=== PATIENT | female | born 1975 | race Two or more races ===

== ENCOUNTER 2019-01-18 13:26 | Emergency (ER) | payer BC ==
[~2019-01-18] VITALS: Ht 157.5 cm; Wt 105.2 kg
[2019-01-18] MEDS ORDERED: ZOLOFT50 MG PO (13:37)
[2019-01-18] MEDS ORDERED: XANAX0.5 MG PO (13:37)
[2019-01-18] MEDS ORDERED: SODIUM CHLORIDE 0.9% 1000ML 1,000 ML IV STA (13:58)
[2019-01-18 14:11] LABS: BILIRUBIN,URINE 1+ (NEGATIVE); CLARITY,URINE HAZY (CLEAR); COLOR,URINE YELLOW (YELLOW); KETONES,URINE 1+ (NEGATIVE); LEUKOCYTE ESTERASE ,URINE NEGATIVE (NEGATIVE); NITRITE,URINE NEGATIVE (NEGATIVE); PROTEIN,URINE DIPSTICK TRACE (NEGATIVE); URINE UROBILINOGEN 0.2 mg/dL (0.2 - 1)
[2019-01-18] MEDS ORDERED: DIATRIZOATE MEGL/DIATRIZOA SOD 30 ML BTL PO ONE (14:14)
[2019-01-18 14:16] LABS: BACTERIA,URINE FEW /HPF; EPITHELIAL CELLS,URINE FEW /LPF; RBC,URINE 21-50 /HPF (0-5); WBC,URINE (MAN) 0-5 /HPF (0-5)
--- NOTE | 2019-01-18 14:17 | NUR ---
xray at bedside.
--- NOTE | 2019-01-18 14:20 | NUR ---
xray leaves bedside.
[2019-01-18] MEDS ORDERED: ONDANSETRON HCL INJ 2MG/ML 2ML 2 MG/ML VIAL IV ONE ×3 (14:30→19:30)
[2019-01-18] MEDS ORDERED: PANTOPRAZOLE 40 MG 10ML VIAL IV ONE (14:30)
[2019-01-18] MEDS ORDERED: MORPHINE SULFATE INJ 4 MG/ML INJ 1ML IV ONE ×2 (14:30→18:00)
--- NOTE | 2019-01-18 14:55 | Diagnostic Imaging Report ---
EXAMINATION: CHEST SINGLE (PORTABLE) COMPARISON: None INDICATION: 3 days of diarrhea ^ABD PAIN ^[id number] ^1433 DISCUSSION: Frontal view of the chest obtained at 1437 hours. HEART AND MEDIASTINUM: The cardiomediastinal silhouette is unremarkable. LINES: None. LUNGS: The lungs are well inflated and clear. No pneumonia or pulmonary edema. PLEURA: No pleural effusion or pneumothorax. BONES AND SOFT TISSUES: No focal osseous lesion. The soft tissues are normal. IMPRESSION: No acute cardiopulmonary disease. Signed by: Dr. Florian Johns MD on 01/18/2019 2:52 PM
[2019-01-18 16:19] LABS: BASOPHILS % 0.3 % (0.0-1.0); EOSINOPHILS % 0.6 % (0.0-6.0); HEMATOCRIT 45.9 % (34.2-44.1); HEMOGLOBIN 15.3 g/dL (12.0-16.0); LYMPHOCYTES # (AUTO) 1.6 (1.0-3.2); LYMPHOCYTES % 22.4 % (18.0-39.1); MEAN CORPUSCULAR HEMOGLOBIN 31.7 pg (28-32); MEAN CORPUSCULAR HGB CONC 33.3 g/dL (31-35); MONOCYTES # (AUTO) 1.1 (0.2-0.8); NEUTROPHILS # (AUTO) 4.3 (2.1-6.9); NEUTROPHILS % 60.3 % (38.7-80.0); PLATELET COUNT 193 x10e3/uL (140-360); RED BLOOD COUNT 4.83 x10e6/uL (3.6-5.1); RED CELL DISTRIBUTION WIDTH 11.9 % (11.7-14.4)
[2019-01-18 16:23] LABS: INR 0.92; PROTHROMBIN TIME 12.8 seconds (11.9-14.5)
[2019-01-18 16:24] LABS: PARTIAL THROMBOPLASTIN TIME 33.1 seconds (23.8-35.5)
[2019-01-18 16:33] LABS: ALANINE AMINOTRANSFERASE 32 IU/L (0-55); ALBUMIN 3.6 g/dL (3.5-5.0); ALBUMIN/GLOBULIN RATIO 0.9 (0.8-2.0); ALKALINE PHOSPHATASE 84 IU/L (40-150); AMYLASE 47 U/L (25-125); BLOOD UREA NITROGEN 11 mg/dL (7-26); BUN/CREATININE RATIO 15 (6-25); CALCIUM 8.3 mg/dL (8.4-10.2); CARBON DIOXIDE 18 mmol/L (22-29); CHLORIDE 109 mmol/L (98-107); CREATINE KINASE 49 IU/L (29-168); CREATININE, SERUM 0.71 mg/dL (0.57-1.11); EST GLOMERULAR FILTRATION RATE > 60 ML/MIN (60-); GLUCOSE 81 mg/dL (74-118); LIPASE 26 U/L (8-78); MAGNESIUM 1.7 MG/DL (1.3-2.1); SODIUM 136 mmol/L (136-145)
[2019-01-18 16:54] LABS: OCCULT BLOOD STOOL POSITIVE (NEGATIVE)
[2019-01-18] MEDS ORDERED: SODIUM CHLORIDE 0.9% 1000ML 1,000 ML IV ONE (17:15)
--- NOTE | 2019-01-18 17:30 | Diagnostic Imaging Report ---
CT Abdomen And Pelvis with Intravenous Contrast INDICATION: ^DIFFUSE ABD PAIN, N/V/D TECHNIQUE: Thin collimation axial images obtained from the diaphragm to the level of the pubic symphysis following the uneventful administration of 100 cc of low osmolar, nonionic intravenous contrast. Oral contrast was administered. Dose reduction techniques used: Automated exposure control, adjustment of the mAs and/or kVp according to patient size, standardized low-dose protocol, and/or iterative reconstruction technique. RADIATION DOSE: Total DLP: 868.6 mGy*cm Estimated effective dose: (DLP x 0.015 x size factor) mSv CTDIvol has been reviewed. It is below the limits set by the Radiation Protocol Committee (RPC). COMPARISON: None. ABDOMEN FINDINGS: Lung Bases: Clear. The visualized portions of the mediastinum are normal.. Liver: Normal attenuation. No evidence for mass. Gallbladder: Present and appears normal. No biliary ductal dilatation. Pancreas: Normal attenuation without mass or ductal dilatation. Spleen: Normal in size. No evidence of mass.. Adrenal Glands: No evidence for mass. Kidneys: Right: Normal enhancement. Several cysts in the lower pole, measuring up to 2.9 cm. This largest cyst may be septated. Punctate calculus in the lower pole No hydronephrosis. Left: Normal enhancement. Multiple cysts, measuring up to 7.3 cm. This largest cyst appears to be septated (series 2, image 38). There is a 5 mm calculus in the upper pole.. The central collecting system is mildly prominent but there is no perinephric inflammation or calyceal dilatation. Lymph Nodes: No enlarged abdominal or retroperitoneal lymph nodes. Mesenteric lymph nodes are mildly prominent, measuring up to 17 mm. No haziness of the small bowel mesentery. Aorta: Normal in diameter PELVIS FINDINGS: Bowel: Stomach: Normal. Small Bowel: Normal in caliber with normal wall thickness. There is enteric contrast in the distal small bowel. Large Bowel: Normal in caliber with normal wall thickness. The cecum is located midline in the pelvis. Enteric contrast present throughout. Appendix: Normal appendix. Bladder: Mildly underdistended but otherwise normal. Ureters: No ureteral dilatation or calculus. No free fluid or fluid collection. The uterus is absent. No adnexal mass. Bones: Mild degenerative changes of the spine. Soft tissues: Unremarkable. IMPRESSION: 1. No evidence for bowel obstruction or inflammation. Normal appendix. 2. Bilateral intrarenal calculi. No obstructive uropathy. 3. Bilateral renal cysts, the largest of which may be septated. 4. Prominent and non-specific mesenteric lymph nodes. Signed by: Dr. Florian Johns MD on 01/18/2019 5:27 PM
[2019-01-18] MEDS ORDERED: IOPAMIDOL 370 MG/ML 200 ML INFUS..BTL INJ ONE (18:24)
[2019-01-18] MEDS ORDERED: SODIUM CHLORIDE 0.9% 50ML 50 ML ONE (18:24)
[2019-01-18 19:59] VITALS: BP 97/56
[2019-01-18] MEDS ORDERED: SODIUM CHLORIDE 0.9% 500ML 500 ML IV ONE (20:15)
[2019-01-18] MEDS ORDERED: PROMETHAZINE 12.5MG/ NACL 0.9% 12.5 MG/50 ML BAG IV ONE (20:15)
[2019-01-19 10:28] LABS: C DIFFICILE TOXIN A&B AMP PROB **POSITIVE** (NEGATIVE)
--- NOTE | 2019-01-20 11:24 | NUR ---
PT NOTIFIED OF POSITIVE C-DIFF RESULTS. VANCOMYCIN 125 MG PO Q6 X 10 DAYS CALLED IN TO [facility] ON BW8. PT INSTRUCTED OF IMPORTANCE OF F/U WITH GI AND VERBALIZES UNDERSTANDING.
== END 2019-01-18 21:20 | disposition home or self-care (01) ==
LOC: ER 13:26
DX: R10.84 Generalized abdominal pain (principal); R11.2 Nausea with vomiting, unspecified; R19.7 Diarrhea, unspecified
CPT/HCPCS: 36415; 71045; 74177; 80053; 81001; 82150; 82270; 82550; 82553; 83690; 83735; 84484; 85025; 85610; 85730; 87086; 87493; 93005; 99284; C9113; J2270; J2405; J2550; J7030; J7040; Q9967

== ENCOUNTER 2019-01-22 23:29 | Emergency (ER) | payer BC ==
[~2019-01-22] VITALS: Ht 157.5 cm; Wt 105.2 kg
[~2019-01-22 23:29] MED LIST: XANAX0.5 MG PO; ZOLOFT50 MG PO
--- OUTSIDE RECORDS SUMMARY | 2019-01-22 23:32 | XMS REPORT ---
Author Author [facility] Address Unknown Phone Unavailable Care Team Providers Care Manager Resort Name Role Phone Brenda PARKER Unavailable Unavailable Problems This patient has no known problems. Allergies, Adverse Reactions, Alerts This patient has no known allergies or adverse reactions. Medications This patient has no known medications. Results Test Description Test Time Test Comments Text Results Atomic Results Result Comments CT ABDOMEN/PELVIS W 2019-01-18 17:12:00 [place] [address] Patient Name: QUENTIN WAHL MR #: [id number] : 1975 Age/Sex: 44/F Req #: [id number] Adm Physician: Ordered by: GERMAN PARKER MD Report #: [id number] Location: ER Room/Bed: Procedure: [id number] CT/CT ABDOMEN/PELVIS W Exam Date: Exam Time: REPORT STATUS: Signed CT Abdomen And Pelvis with Intravenous Contrast INDICATION: DIFFUSE ABD PAIN, N/V/D TECHNIQUE: Thin collimation axial images obtained from the diaphragm to the level of the pubic symphysis following the uneventful administration of 100 cc of low osmolar, nonionic intravenous contrast. Oral contrast was administered. Dose reduction techniques used: Automated exposure control, adjustment of the mAs and/or kVp according to patient size, standardized low-dose protocol, and/or iterative reconstruction technique. RADIATION DOSE: Total DLP: 868.6 mGy*cm Estimated effective dose: (DLP x 0.015 x size factor) mSv CTDIvol has been reviewed. It is below the limits set by the Radiation Protocol Committee (RPC). COMPARISON: None. ABDOMEN FINDINGS: Lung Bases: Clear. The visualized portions of the mediastinum are normal.. Liver: Normal attenuation. No evidence for mass. Gallbladder: Present and appears normal. No biliary ductal dilatation. Pancreas: Normal attenuation without mass or ductal dilatation. Spleen: Normal in size. No evidence of mass.. Adrenal Glands: No evidence for mass. Kidneys: Right: Normal enhancement. Several cysts in the lower pole, measuring up to 2.9 cm. This largest cyst may be septated. Punctate calculus in the lower pole No hydronephrosis. Left: Normal enhancement. Multiple cysts, measuring up to 7.3 cm. This largest cyst appears to be septated (series 2, image 38). There is a 5 mm calculus in the upper pole.. The central collecting system is mildly prominent but there is no perinephric inflammation or calyceal dilatation. Lymph Nodes: No enlarged abdominal or retroperitoneal lymph nodes. Mesenteric lymph nodes are mildly prominent, measuring up to 17 mm. No haziness of the small bowel mesentery. Aorta: Normal in diameter PELVIS FINDINGS: Bowel: Stomach: Normal. Small Bowel: Normal in caliber with normal wall thickness. There is enteric contrast in the distal small bowel. Large Bowel: Normal in caliber with normal wall thickness. The cecum is located midline in the pelvis. Enteric contrast present throughout. Appendix: Normal appendix. Bladder: Mildly underdistended but otherwise normal. Ureters: No ureteral dilatation or calculus. No free fluid or fluid collection. The uterus is absent. No adnexal mass. Bones: Mild degenerative changes of the spine. Soft tissues: Unremarkable. IMPRESSION: 1. No evidence for bowel obstruction or inflammation. Normal appendix. 2. Bilateral intrarenal calculi. No obstructive uropathy. 3. Bilateral renal cysts, the largest of which may be septated. 4. Prominent and non-specific mesenteric lymph nodes. Signed by: Dr. Gwen Johns MD on 01/18/2019 5:27 PM Dictated By: GWEN JOHNS MD 26 Transcribed By: JONES on 01/18/191726 COPY TO: GERMAN PARKER MD CHEST SINGLE (PORTABLE) 2019-01-18 14:51:00 [place] [address] Patient Name: QUENTIN WAHL MR #: [id number] : 1975 Age/Sex: 44/F Req #: [id number] Adm Physician: Ordered by: GERMAN PARKER MD Report #: [id number] Location: ER Room/Bed: Procedure: [id number] DX/CHEST SINGLE (PORTABLE) Exam Date: 01/18/19 Exam Time: 1433 REPORT STATUS: Signed EXAMINATION: CHEST SINGLE (PORTABLE) COMPARIS ON: None INDICATION: 3 days of diarrhea ABD PAIN [id number] 1433 DISCUSSION: Frontal view of the chest obtained at 1437 hours. HEART AND MEDIASTINUM: The cardiomediastinal silhouette is unremarkable. LINES: None. LUNGS: The lungs are well inflated and clear. No pneumonia or pulmonary edema. PLEURA: No pleural effusion or pneumothorax. BONES AND SOFT TISSUES: No focal osseous lesion. The soft tissues are normal. IMPRESSION: No acute cardiopulmonary disease. Signed by: Dr. Gwen Johns MD on 01/18/2019 2:52 PM Dictated By: GWEN JOHNS MD [id number] Transcribed By: JONES on 01/18/19 1422 COPY TO: GERMAN PARKER MD
[2019-01-23 02:55] LABS: CLARITY,URINE CLOUDY (CLEAR); COLOR,URINE YELLOW (YELLOW); LEUKOCYTE ESTERASE ,URINE TRACE (NEGATIVE)
[2019-01-23 02:56] LABS: BILIRUBIN,URINE NEGATIVE (NEGATIVE); KETONES,URINE TRACE (NEGATIVE); NITRITE,URINE NEGATIVE (NEGATIVE); PROTEIN,URINE DIPSTICK 1+ (NEGATIVE); URINE UROBILINOGEN 0.2 mg/dL (0.2 - 1)
[2019-01-23 03:07] LABS: BACTERIA,URINE MANY /HPF; CALCIUM OXALATE CRYSTALS,UR MANY (FEW); EPITHELIAL CELLS,URINE FEW /LPF; MUCUS,URINE MODERATE (RARE); RBC,URINE >50 /HPF (0-5)
[2019-01-23] MEDS ORDERED: KETOROLAC TROMETHAMINE 60 MG/2 ML VIAL IM ONE (03:45)
[2019-01-23] MEDS ORDERED: PHENAZOPYRIDINE HCL 100 MG TAB PO ONE (03:45)
[2019-01-23] MEDS ORDERED: TAMSULOSIN HCL 0.4 MG CAP PO SCH (03:45)
[2019-01-23] MEDS ORDERED: CIPROFLOXACIN 500 MG TAB PO SCH (03:45)
[2019-01-23] MEDS ORDERED: FLOMAX0.4 MG PO (04:32)
[2019-01-23] MEDS ORDERED: KEFLEX500 MG PO (04:34)
[2019-01-23] MEDS ORDERED: ULTRAM50 MG PO (04:34)
[2019-01-23] MEDS ORDERED: TYLENOL WITH C1 EACH PO (04:34)
== END 2019-01-23 05:27 | disposition home or self-care (01) ==
LOC: ER 23:29
DX: M54.5 Low back pain (principal); N20.0 Calculus of kidney; F41.9 Anxiety disorder, unspecified; F32.9 Major depressive disorder, single episode, unspecified
CPT/HCPCS: 81001; 99283; J1885

== ENCOUNTER → 2019-02-10 | Outpatient (CLI) | payer BC ==
[~2019-02-10] MED LIST changes: +FLOMAX0.4 MG PO; +KEFLEX500 MG PO; +TYLENOL WITH C1 EACH PO; +ULTRAM50 MG PO
== END ==
LOC: MAMMO 09:26
PROVIDERS: ATTEND Obstetrics & Gynecology
DX: Z12.31 Encounter for screening mammogram for malignant neoplasm of breast (principal)
CPT/HCPCS: 77067

== ENCOUNTER 2019-02-26 01:56 | Inpatient (IN) | payer BC ==
[~2019-02-26] VITALS: Ht 157.5 cm; Wt 105.2 kg
[2019-02-26] MEDS ORDERED: ONDANSETRON HCL 4 MG ORAL DISINTEGRATING TAB PO ONE (02:30)
[2019-02-26] MEDS ORDERED: KETOROLAC TROMETHAMINE 60 MG/2 ML VIAL IM ONE (02:30)
[2019-02-26 02:52] LABS: BILIRUBIN,URINE NEGATIVE (NEGATIVE); CLARITY,URINE CLOUDY (CLEAR); COLOR,URINE YELLOW (YELLOW); KETONES,URINE NEGATIVE (NEGATIVE); LEUKOCYTE ESTERASE ,URINE 1+ (NEGATIVE); NITRITE,URINE NEGATIVE (NEGATIVE); PROTEIN,URINE DIPSTICK 1+ (NEGATIVE); URINE UROBILINOGEN 0.2 mg/dL (0.2 - 1)
[2019-02-26 02:53] LABS: BACTERIA,URINE MANY /HPF; CALCIUM OXALATE CRYSTALS,UR FEW (FEW); EPITHELIAL CELLS,URINE FEW /LPF; MUCUS,URINE MODERATE (RARE); RBC,URINE >50 /HPF (0-5)
[2019-02-26 03:06] LABS: PREGNANCY TEST, URINE NEGATIVE (NEGATIVE)
--- NOTE | 2019-02-26 03:33 | Diagnostic Imaging Report ---
EXAM: CT Abdomen and Pelvis WITHOUT contrast INDICATION: Left flank pain. Vomiting. Kidney stone. COMPARISON: 01/18/2019. TECHNIQUE: Abdomen and pelvis were scanned utilizing a multidetector helical scanner from the lung base to the pubic symphysis without administration of IV contrast. Absence of intravenous contrast decreases sensitivity for detection of focal lesions and vascular pathology. Coronal and sagittal reformations were obtained. Routine protocol was performed. IV CONTRAST: None. ORAL CONTRAST: Water RADIATION DOSE: Total DLP: 859.24 mGy*cm Estimated effective dose: (DLP x 0.015 x size factor) mSv COMPLICATIONS: None FINDINGS: LINES and TUBES: None. LOWER THORAX: Unremarkable HEPATOBILIARY: No focal hepatic lesions. No biliary ductal dilation. GALLBLADDER: No radio-opaque stones or sludge. No wall thickening. SPLEEN: No splenomegaly. PANCREAS: No focal masses or ductal dilatation. ADRENALS: No adrenal nodules KIDNEYS/URETERS: Edematous left kidney with moderate hydroureteronephrosis, secondary to the presence of a 0.5 cm obstructing calculus in the proximal left ureter, which has migrated from the interpolar region of the left kidney. 10 cm cyst in the lower pole of the left kidney. Cysts in the lower pole of the right kidney, the largest measuring approximately 2.9 cm. Punctate nonobstructing calculus in the lower pole of the right kidney on image 76 series 3. GI TRACT: No abnormal distention, wall thickening, or evidence of bowel obstruction. Appendix is normal. PELVIC ORGANS/BLADDER: Unremarkable. LYMPH NODES: No lymphadenopathy. VESSELS: Unremarkable. PERITONEUM / RETROPERITONEUM: No free air or fluid. BONES: Unremarkable. SOFT TISSUES: Unremarkable. IMPRESSION: 1. 0.5 mm obstructing calculus in the proximal left ureter resulting in moderate left hydroureteronephrosis and marked left renal edema Signed by: Dr. Tio De La Cruz M.D. on 02/26/2019 3:30 AM
[2019-02-26] MEDS: SODIUM CHLORIDE 0.9% 1000ML 1,000 ML IV SCH ×2 (04:07→13:00)
[2019-02-26] MEDS: CEFTRIAXONE SOD 1 GM/NS 50 ML 50 ML IV SCH ×2 (06:23→09:12)
[2019-02-26] MEDS ORDERED: PROMETHAZINE HC25 M1 PO (06:37)
[2019-02-26] MEDS ORDERED: KETOROLAC TROMETHAMINE 30 MG/ML VIAL IM PRN (06:45)
[2019-02-26 06:57] LABS: BASOPHILS % 0.3 % (0.0-1.0); EOSINOPHILS # (AUTO) 0.1 (0.0-0.4); EOSINOPHILS % 0.7 % (0.0-6.0); HEMATOCRIT 40.2 % (34.2-44.1); HEMOGLOBIN 13.3 g/dL (12.0-16.0); LYMPHOCYTES # (AUTO) 1.9 (1.0-3.2); LYMPHOCYTES % 13.9 % (18.0-39.1); MEAN CORPUSCULAR HEMOGLOBIN 31.7 pg (28-32); MEAN CORPUSCULAR HGB CONC 33.1 g/dL (31-35); MEAN CORPUSCULAR VOLUME 95.9 fL (81-99); MONOCYTES # (AUTO) 2.1 (0.2-0.8); MONOCYTES % 15.1 % (4.4-11.3); NEUTROPHILS # (AUTO) 9.5 (2.1-6.9); NEUTROPHILS % 69.4 % (38.7-80.0); PLATELET COUNT 245 x10e3/uL (140-360); RED BLOOD COUNT 4.19 x10e6/uL (3.6-5.1); RED CELL DISTRIBUTION WIDTH 11.8 % (11.7-14.4)
[2019-02-26 07:08] LABS: ALANINE AMINOTRANSFERASE 25 IU/L (0-55); ALBUMIN 3.5 g/dL (3.5-5.0); ALBUMIN/GLOBULIN RATIO 0.9 (0.8-2.0); ALKALINE PHOSPHATASE 79 IU/L (40-150); ANION GAP 13.3 mmol/L (8-16); BLOOD UREA NITROGEN 15 mg/dL (7-26); BUN/CREATININE RATIO 18 (6-25); CALCIUM 9.5 mg/dL (8.4-10.2); CARBON DIOXIDE 25 mmol/L (22-29); CHLORIDE 105 mmol/L (98-107); CREATININE, SERUM 0.85 mg/dL (0.57-1.11); EST GLOMERULAR FILTRATION RATE > 60 ML/MIN (60-); GLUCOSE 95 mg/dL (74-118); POTASSIUM 3.3 mmol/L (3.5-5.1); SODIUM 140 mmol/L (136-145)
[2019-02-26 07:48] LABS: LYMPHOCYTES % (MANUAL) 20 % (19-48); MONOCYTES % (MANUAL) 9 % (3.4-9.0); NEUTROPHILS % (MANUAL) 71 % (40-74); PLATELET ESTIMATE ADEQUATE; PLATELET MORPHOLOGY COMMENT NORMAL; RBC MORPHOLOGY COMMENT NORMAL
--- NOTE | 2019-02-26 09:11 | NUR ---
DR. Jesus BARON IN TO SEE PATIENT. PATIENT NPO. CONSENT SIGNED AND PLACED INTO CHART ORDERED.
[2019-02-26] MEDS: SERTRALINE HCL 50 MG TAB PO SCH (09:12)
[2019-02-26] MEDS ORDERED: PROMETHAZINE HCL (IM) 25 MG/ML VIAL IM PRN (09:45)
[2019-02-26] MEDS: KETOROLAC TROMETHAMINE 30 MG/ML VIAL IV PRN ×2 (11:04→21:18)
[2019-02-26 12:00] VITALS: BP 126/79
[2019-02-26 12:20] VITALS: BP 126/78
--- NOTE | 2019-02-26 12:20 | NUR ---
PATIENT ARRIVED TO ROOM 295 AT 1208. SHE IS IN STABLE CONDITION. INITIAL ADMISSION AND PHYSICAL ASSESSMENT COMPLETED AND DOCUMENTED. PATIENT ORIENTED TO ROOM AND POLICIES. CALL LIGHT WITHIN REACH. BED IN THE LOWEST POSITION.
[2019-02-26 12:36] VITALS: BP 126/78
[2019-02-26] MEDS ORDERED: POTASSIUM CHLORIDE 10MEQ/100ML 100 ML IV ONE (12:45)
--- NOTE | 2019-02-26 14:31 | Consultation ---
DATE OF CONSULTATION: 02/26/2019 Urology Consultation REASON FOR CONSULTATION: Renal colic. HISTORY OF PRESENT ILLNESS: Candida Bright is a 44-year-old woman who has had a previous urological history of urolithiasis. The patient has undergone right-sided ureteroscopy with stent placement followed by stent removal. The patient was previously seen in the emergency room on January 18, 2019, at which point in time, she had a CT which showed that she had a 5 mm stone in the upper pole of the left kidney. The patient initially came in with gastrointestinal complaints, was eventually found to be Clostridium difficile positive and was treated. The patient has had Clostridium difficile colitis before. The patient did not follow up with the urologist; however, she started having left-sided flank pain with nausea and vomiting. Yesterday, she denies any fever, dysuria, or hematuria. She reports not having any urinary tract infections in many years and does not feel like she has urinary tract infection at this time. The patient reported in the emergency room, was found that the 5 mm stone is now lodged in the proximal left ureter with left hydronephrosis. The patient also has bilateral renal cysts that she has known about as well. She denies any urinary incontinence. PAST MEDICAL AND SURGICAL HISTORY: 1. Status post tonsillectomy. 2. Status post robotic-assisted hysterectomy with left salpingo-oophorectomy. 3. 1, para 1, by section. 4. Status post sinus surgery. CURRENT MEDICATIONS: Please refer to the MAR. ALLERGIES: NONE KNOWN. SOCIAL HISTORY: The patient denies smoking, ethanol, or drug use. The patient is a data consultant. FAMILY HISTORY: Noncontributory to the active urological problems. REVIEW OF SYSTEMS: Discussed as above in the history of present illness, past medical history, otherwise negative for all systems. PHYSICAL EXAMINATION: GENERAL: Very pleasant 44-year-old woman lying in bed, in no apparent distress. VITAL SIGNS: She is currently afebrile. Her vital signs are currently stable. ABDOMEN: Soft, nondistended, and nontender except mildly in the left upper quadrant without costovertebral angle tenderness. Kidneys not palpable, without hepatosplenomegaly. For the remaining physical examination systems, please refer to the admission history and physical as well as the ERT sheet. LABORATORY STUDIES: The patient's CT scanning shows bilateral renal cysts, the largest one in the left side measuring 10 cm. She has a punctate stone in the right kidney and a 5 mm stone lodged in the proximal left ureter with left hydroureteronephrosis. White blood cell count is 13,640, hemoglobin 13.3, and platelets 245,000. The patient's potassium is slightly low at 3.3. Urinalysis significant for pyuria and microhematuria with many bacteria and few epithelial cells. ASSESSMENT: 1. Left renal colic. 2. Nausea and vomiting. 3. Hematuria. 4. Pyuria and possible urinary tract infection. 5. Bilateral renal cysts, largest on the left. 6. Punctate right nephrolithiasis. 7. A 5 mm proximal obstructing left ureterolithiasis. 8. Left hydronephrosis due to stone. 9. Leukocytosis. 10. Hypokalemia. 11. Obesity. PLAN: 1. I deferred hematological and electrolyte abnormalities to the admitting physician. 2. We will keep the patient n.p.o. 3. We will post the patient to the operating room for cystoscopy and placement of a left stent. The patient has had a stent before and she understands that temporary stent requires followup and removal. 4. I deferred the choice of antibiotics and continuance of antibiotics to the admitting physician due to the fact that the patient has Clostridium difficile history. 5. I will order straining of the urine. 6. Following stenting, the patient will need to be monitored for any sign of infection in light of the bacteriuria following which she will be discharged home to have outpatient elective stone surgery. Whether she has an ESWL or ureteroscopy, the next step will be determined later. 7. I also encouraged the patient to follow up on a long-term basis in order to perform metabolic stone workup and hopefully prevent or at least decrease her urolithiasis recurrence. Thank you much for involving us in care of your patient. We will be happy to follow her along with you as well as an outpatient. Miguel Murphy MD [place]/MODL /[id number]
[2019-02-26 16:00] VITALS: BP 133/76
[2019-02-26] MEDS ORDERED: POTASSIUM CHLORIDE 20 MEQ TAB CR PO STA (16:11)
[2019-02-26] MEDS ORDERED: ACETAMINOPHEN 325 MG TAB PO PRN (16:15)
[2019-02-26] MEDS ORDERED: POTASSIUM CHLORIDE 20 MEQ TAB CR PO PRN (16:30)
--- NOTE | 2019-02-26 16:45 | NUR ---
PATIENT OFF THE UNIT FOR PROCEDURE.
[2019-02-26] MEDS ORDERED: BELLADONNA/OPIUM 60 MG SUPP PR ONE (17:56)
[2019-02-26] MEDS ORDERED: IOPAMIDOL 610MG/1ML 300 MG/ML VIAL IV ONE (17:56)
--- NOTE | 2019-02-26 18:46 | NUR ---
REPORT GIVEN TO ONCOMING NURSE, PATIENT IS STILL IN OR FOR PROCEDURE.
[2019-02-26] MEDS ORDERED: DEXAMETHASONE SOD PHOS INJ 4 MG/ML VIAL ONE (19:16)
[2019-02-26] MEDS ORDERED: PROPOFOL IV EMULSION 10 MG/ML 20 ML VIAL ONE (19:16)
[2019-02-26] MEDS ORDERED: ONDANSETRON HCL INJ 2MG/ML 2ML 2 MG/ML VIAL ONE (19:16)
[2019-02-26] MEDS ORDERED: SEVOFLURANE INHAL SOLN 250 ML PEN BTL ONE (19:16)
[2019-02-26] MEDS ORDERED: FENTANYL CITRATE/PF 100MCG/2 ML INJ ONE (19:30)
[2019-02-26] MEDS ORDERED: MIDAZOLAM HCL 2 MG/2 ML VIAL ONE (19:30)
[2019-02-26] MEDS ORDERED: ACETAMINOPHEN/CODEINE 300MG - 30MG TAB PO PRN (19:30)
--- NOTE | 2019-02-26 19:56 | NUR ---
PATIENT RETURNED FROM PROCEDURE AAOX3 NO SIGNS OF DISTRESS, FAMILY IN ROOM, RESTING COMFORTABLY, CALL LIGHT IN REACH, WILL CONTINUE TO MONITOR.
[2019-02-26 21:00] VITALS: BP 165/84
--- NOTE | 2019-02-26 21:17 | NUR ---
PATIENT VOIDED IN TOILET, PINK TINGED URINE FROM PREVIOUS PROCEDURE, URINE STRAINED FOR STONES, NO STONES NOTED, WILL CONTINUE TO MONITOR
[2019-02-26] MEDS: OXYBUTYNIN CHLORIDE 5 MG TAB PO SCH (21:27)
[2019-02-26 21:54] VITALS: BP 134/75
[2019-02-26] MEDS ORDERED: ZOLPIDEM TARTRATE 10 MG TAB PO PRN (22:30)
--- NOTE | 2019-02-26 22:55 | History and Physical ---
HISTORY OF PRESENT ILLNESS: The patient is a 44 years old female with past medical history positive for kidney stones in the past, came here with left flank pain. She was found to have a kidney stone again and the patient is going to go for cystoscopy and retrograde today by Dr. Murphy. REVIEW OF SYSTEMS: CARDIOVASCULAR: No chest pain or palpitation. RESPIRATORY: No shortness of breath. No cough. GASTROINTESTINAL: No nausea, vomiting, or diarrhea. GENITOURINARY: Has left flank pain. No blood in the urine. No frequency. ALLERGIES: SHE IS NOT ALLERGIC TO ANY MEDICATION. PAST MEDICAL HISTORY: Positive only for recurrent kidney stones. SOCIAL HISTORY: She does not smoke. She does not drink. PHYSICAL EXAMINATION: VITAL SIGNS: Blood pressure is 126/79, temperature 96.1, heart rate 65 per minute, respiratory rate 20 per minute, and oxygen saturation 98%. LABORATORY DATA: On the BMP, sodium 140, potassium 3.3, chloride 105, CO2 of 25, BUN 16, creatinine 0.5, and glucose 95, and CBC, white blood count 13,600, hemoglobin 13.3, hematocrit 40.2, and platelet count of 145,000. AST 25, total bilirubin 0.4, alkaline phosphatase 79, and ALT 25. IMPRESSION: So far, 1. Left hydronephrosis secondary to kidney stone. 2. Hypokalemia. 3. Obesity. 4. Possible urinary tract infection. PLAN OF TREATMENT: Continue IV fluids. Continue Rocephin 2 g IV daily. Continue sertraline 50 mg daily, ketorolac 30 mg IV q.6 hours as needed, promethazine 25 mg q.4 hours as needed, Tylenol mg q.4 hours as needed for mild pain or fever. Also, potassium will be replaced with 10 mEq one time. We are going to recheck BMP, magnesium, and CBC tomorrow. Dr. Murphy has been consulted from Urology point of view, the patient is pain-free and as I said, we are going to wait for urine culture to be ready and then continue the current treatment. MD SAI Timmons/BUBBA /[id number]
[2019-02-27] VITALS: BP 127/77
[2019-02-27] MEDS: SODIUM CHLORIDE 0.9% 1000ML 1,000 ML IV SCH (00:55)
[2019-02-27 04:00] VITALS: BP 135/70
[2019-02-27] MEDS: KETOROLAC TROMETHAMINE 30 MG/ML VIAL IV PRN ×3 (05:24→15:34)
[2019-02-27 07:07] LABS: BASOPHILS % 0.2 % (0.0-1.0); EOSINOPHILS # (AUTO) 0.1 (0.0-0.4); EOSINOPHILS % 1.6 % (0.0-6.0); HEMATOCRIT 39.4 % (34.2-44.1); HEMOGLOBIN 12.8 g/dL (12.0-16.0); LYMPHOCYTES # (AUTO) 1.1 (1.0-3.2); LYMPHOCYTES % 11.9 % (18.0-39.1); MEAN CORPUSCULAR HEMOGLOBIN 31.1 pg (28-32); MEAN CORPUSCULAR HGB CONC 32.5 g/dL (31-35); MEAN CORPUSCULAR VOLUME 95.6 fL (81-99); MONOCYTES # (AUTO) 0.7 (0.2-0.8); MONOCYTES % 7.4 % (4.4-11.3); NEUTROPHILS % 78.5 % (38.7-80.0); PLATELET COUNT 273 x10e3/uL (140-360); RED BLOOD COUNT 4.12 x10e6/uL (3.6-5.1); RED CELL DISTRIBUTION WIDTH 11.6 % (11.7-14.4)
[2019-02-27 07:19] LABS: ANION GAP 13.1 mmol/L (8-16); BLOOD UREA NITROGEN 12 mg/dL (7-26); BUN/CREATININE RATIO 17 (6-25); CALCIUM 9.1 mg/dL (8.4-10.2); CARBON DIOXIDE 23 mmol/L (22-29); CHLORIDE 109 mmol/L (98-107); CREATININE, SERUM 0.72 mg/dL (0.57-1.11); EST GLOMERULAR FILTRATION RATE > 60 ML/MIN (60-); GLUCOSE 109 mg/dL (74-118); POTASSIUM 4.1 mmol/L (3.5-5.1); SODIUM 141 mmol/L (136-145)
--- NOTE | 2019-02-27 07:30 | NUR ---
PT IS IN BED C/O PAIN 02/11, NO S/S OF DISTRESS, PT ON RA. SIDE RAILS UP X2, BED IN LOWEST POSITION, AND CALL MADRID WITHIN REACH.
[2019-02-27 08:12] VITALS: BP 125/68
[2019-02-27] MEDS: OXYBUTYNIN CHLORIDE 5 MG TAB PO SCH ×2 (08:48→15:32)
[2019-02-27] MEDS: SERTRALINE HCL 50 MG TAB PO SCH (08:48)
[2019-02-27] MEDS: PHENAZOPYRIDINE HCL 100 MG TAB PO SCH ×2 (08:48→13:33)
[2019-02-27] MEDS: CEFTRIAXONE SOD 1 GM/NS 50 ML 50 ML IV SCH (08:54)
[2019-02-27 11:22] VITALS: BP 125/68
[2019-02-27 11:33] VITALS: BP 126/67
[2019-02-27 13:28] LABS: ANISOCYTOSIS SLIGHT; HYPOCHROMASIA SLIGHT; LYMPHOCYTES % (MANUAL) 10 % (19-48); MONOCYTES % (MANUAL) 5 % (3.4-9.0); MYELOCYTES % (MANUAL) 2 % (0-0); NEUTROPHILS % (MANUAL) 79 % (40-74); PLATELET ESTIMATE ADEQUATE; PLATELET MORPHOLOGY COMMENT NORMAL; RBC MORPHOLOGY COMMENT NORMAL
--- NOTE | 2019-02-27 13:30 | NUR ---
PT IN BED RESTING WITH EYES OPENED. NO S/S OF DISTRESS. BED IN LOWEST, SIDE RAILS UP X2, AND CALL MADRID WITHIN REACH.
[2019-02-27] MEDS ORDERED: TYLENOL WITH C1 EACH PO (15:44)
[2019-02-27] MEDS ORDERED: DITROPAN XL5 MG PO (15:46)
[2019-02-27] MEDS ORDERED: CEFTIN PO (15:46)
[2019-02-27 16:14] VITALS: BP 131/68
--- NOTE | 2019-02-27 16:20 | NUR ---
PT HAS BEEN D/C HOME. IV REMOVED WITHOUT NO COMPLICATIONS. BROTHER CAME TO TAKE HER HOME. WALKED DOWN WITH HER TO THE FRONT OF THE HOSPITAL. NO S/S OF DISTRESS.
[2019-02-27] MEDS ORDERED: DOCUSATE SODIUM 100 MG CAP PO SCH (17:00)
--- NOTE | 2019-02-28 07:13 | Discharge Summary ---
HOSPITAL COURSE: The patient is a 44-year-old female with no past medical history, came here with a left kidney stone. Stent was placed by Dr. Murphy. Antibiotics were started. The patient is going home today and is going to follow up as an outpatient with Dr. Murphy. PHYSICAL EXAMINATION: VITAL SIGNS: Blood pressure 126/67, temperature 98.5, heart rate 65 per minute, respiratory rate 18 per minute, and oxygen saturation 98%. HEART: Regular rhythm. Normal S1, S2 sound. LUNGS: Clear bilaterally. LABORATORY DATA: BMP; sodium 141, potassium 4.1, chloride 109, CO2 23, BUN 12, creatinine 0.72, and glucose 109. CBC, white count 8.97, hemoglobin 12.8, hematocrit 39.4, and platelet count [id number]. AST 25, ALT 25, total bilirubin 0.4, alkaline phosphatase is 79. IMPRESSION: 1. Left kidney stone, status post stent placement. 2. Hypokalemia, which is resolved. 3. Obesity. PLAN OF TREATMENT: The patient is going to be discharged home on the following medications. Tylenol 3 one tablet every 4 hours as needed for pain, #30, no refills, Ceftin 500 mg twice a day for 10 days, Ditropan 5 mg three times a day as needed for overactive bladder. She will be DNR. Thank you for allowing me, Dr. Murphy, as an outpatient. He will do a future ureteroscopy as an outpatient. MD SAI Timmons/BUBBA /[id number]
--- NOTE | 2019-03-19 01:21 | Operative Report ---
DATE OF PROCEDURE: 02/26/2019 SURGEON: Miguel Murhpy MD POSTOPERATIVE DIAGNOSES: 1. Left ureterolithiasis. 2. Microhematuria. 3. Urinary tract infection. 4. Left hydronephrosis due to stone. POSTOPERATIVE DIAGNOSES: 1. Left ureterolithiasis. 2. Microhematuria. 3. Urinary tract infection. 4. Left hydronephrosis due to stone. 5. Cystocele. 6. Rectocele. OPERATION PERFORMED: 1. Cystourethroscopy with bilateral ureteral catheterization and retrograde ureteropyelography (separate procedure performed for microhematuria and pyuria). 2. Interpretation of retrograde ureteropyelography. 3. Supervision of fluoroscopy, no radiologist present. 4. Cystourethroscopy with manipulation without extraction of left ureteral stone (separate procedure performed to push the stone proximally into the renal pelvis from the proximal ureter). 5. Urological Services with stone manipulation. 6. Cystourethroscopy with insertion of left indwelling ureteral stent (separate procedure performed to relieve the hydronephrosis). 7. Pelvic examination under anesthesia. ANESTHESIA: General. COMPLICATIONS: None. CLINICAL SUMMARY: Candida Bright is a 44-year-old woman with the above preoperative diagnoses. She is brought for the above procedures. She is aware of the risks of bleeding, infection, injury to adjacent structures, need for additional procedures. She understands. She will have a temporary indwelling ureteral stent, it requires followup and removal. She understood all these risks and elected to proceed. OPERATIVE PROCEDURE IN DETAIL: Informed consent was verified. Candida Bright was properly identified, taken to the operating room, placed on the cystoscopy table in supine position. Anesthesia was uneventfully begun. The patient was then carefully and gently repositioned in a dorsal lithotomy position. All pressure points were well padded. Her genitalia were prepared and draped in usual sterile fashion. The cystoscope sheath was inserted into the patient's urethra and bladder was drained. Panendoscopy revealed no suspicion for lesions. No tumors, no stones, no diverticula, normally positioned configured ureteral orifices were identified. The ureteral catheter was used to cannulate each ureter and retrograde ureterogram was performed. The open-ended catheter was then brought up towards the level of the patient's stone. The stone was gently tacked. The stone then floated into the renal pelvis. Thus, we manipulated it. With cystoscopic and fluoroscopic guidance, a left-sided indwelling ureteral stent was then placed, it was coiled in the patient's kidney as well as the patient's bladder, the retaining suture was cut short. Interpretation of retrograde ureteropyelography: Contrast was instilled in a retrograde fashion bilaterally. The right side was unremarkable. There are no tumors, no stones, no diverticula. Unobstructed drainage was observed fluoroscopically. Left side exhibited hydroureteronephrosis down to the level of the patient's stone. We could see that how we floated the stone from the proximal ureter to the renal pelvis. The stent was in good position, coiled the patient's kidney as well as the patient's bladder at the end of the case. The patient bladder was drained, resectoscope was withdrawn. Pelvic examination revealed a cystorectocele with no suspicious mucosal lesions were identified. There were no obvious mucosal lesions. The patient was then uneventfully reversed from anesthesia and taken to the recovery room in stable condition. Explicit postoperative instructions were given. We will plan on having the patient be discharged and following discharge, we will plan to follow the patient up for left ureteroscopy with laser lithotripsy and stent removal. MD PALOMO Blevins/BUBBA /[id number]
== END 2019-02-27 16:35 | disposition home or self-care (01) | DRG 660 ==
LOC: ER 01:56 → ERHOLD 03:29 → MED/SURG3 12:10
PROVIDERS: ADMIT Internal Medicine; ATTEND Internal Medicine
PROC: BT141ZZ Fluoroscopy of Kidneys, Ureters and Bladder using Low Osmolar Contrast (ICD-10-PCS; 2019-02-26)
PROC: 0T778DZ Dilation of Left Ureter with Intraluminal Device, Via Natural or Artificial Opening Endoscopic (ICD-10-PCS; principal; 2019-02-26 17:00)
DX: N13.6 Pyonephrosis (principal); Z68.41 Body mass index [BMI] 40.0-44.9, adult; E87.6 Hypokalemia; E66.9 Obesity, unspecified; Z87.442 Personal history of urinary calculi; R31.29 Other microscopic hematuria; N81.6 Rectocele; N81.10 Cystocele, unspecified
CPT/HCPCS: 36415; 74176; 74420; 80048; 80053; 81001; 81025; 83735; 83970; 84550; 85025; 87086; 99284; C1758; C2617; J0696; J1100; J1885; J2250; J2405; J2550; J3480; J7030

== ENCOUNTER 2019-03-03 06:36 | Inpatient (IN) | payer BC ==
[~2019-03-03] VITALS: Ht 157.5 cm; Wt 108.4 kg
[~2019-03-03 06:36] MED LIST changes: +CEFTIN PO; +DITROPAN XL5 MG PO; +PROMETHAZINE HC25 M1 PO
[2019-03-03 07:15] LABS: BASOPHILS # (AUTO) 0.1 (0.0-0.1); BASOPHILS % 0.5 % (0.0-1.0); EOSINOPHILS # (AUTO) 0.4 (0.0-0.4); EOSINOPHILS % 3.6 % (0.0-6.0); HEMATOCRIT 39.5 % (34.2-44.1); HEMOGLOBIN 13.2 g/dL (12.0-16.0); LYMPHOCYTES # (AUTO) 2.3 (1.0-3.2); LYMPHOCYTES % 22.4 % (18.0-39.1); MEAN CORPUSCULAR HEMOGLOBIN 31.4 pg (28-32); MEAN CORPUSCULAR HGB CONC 33.4 g/dL (31-35); MEAN CORPUSCULAR VOLUME 93.8 fL (81-99); MONOCYTES # (AUTO) 1.3 (0.2-0.8); MONOCYTES % 13.2 % (4.4-11.3); NEUTROPHILS % 59.8 % (38.7-80.0); PLATELET COUNT 267 x10e3/uL (140-360); RED BLOOD COUNT 4.21 x10e6/uL (3.6-5.1); RED CELL DISTRIBUTION WIDTH 11.5 % (11.7-14.4)
--- NOTE | 2019-03-03 07:25 | NUR ---
URINE OBTAINED AND SENT TO LAB FOR ANALYSIS
[2019-03-03 07:38] LABS: ALANINE AMINOTRANSFERASE 16 IU/L (0-55); ALBUMIN 3.2 g/dL (3.5-5.0); ALBUMIN/GLOBULIN RATIO 0.8 (0.8-2.0); ALKALINE PHOSPHATASE 77 IU/L (40-150); CALCIUM 9.4 mg/dL (8.4-10.2); CARBON DIOXIDE 28 mmol/L (22-29); CHLORIDE 103 mmol/L (98-107); CREATININE, SERUM 0.67 mg/dL (0.57-1.11); EST GLOMERULAR FILTRATION RATE > 60 ML/MIN (60-); GLUCOSE 94 mg/dL (74-118); SODIUM 138 mmol/L (136-145)
--- NOTE | 2019-03-03 07:41 | Diagnostic Imaging Report ---
EXAMINATION: CT of the abdomen and pelvis without contrast. TECHNIQUE: Spiral CT images of the abdomen and pelvis were performed from the lung bases to the lesser trochanters. No intravenous contrast was given per renal stone protocol. Coronal and sagittal reformatted images were obtained. COMPARISON: 02/26/2019, retrograde urogram 02/26/2019 CLINICAL HISTORY:Left flank pain, status post ureteral stent placement DISCUSSION: ABSENCE OF INTRAVENOUS CONTRAST DECREASES SENSITIVITY FOR DETECTION OF FOCAL LESIONS AND VASCULAR PATHOLOGY. ABDOMEN/PELVIS: LOWER THORAX: New nonspecific groundglass opacity in the medial segment of the right middle lobe. Trace subsegmental atelectasis in the dependent lower lobes. HEPATOBILIARY:No focal hepatic lesions. No biliary ductal dilation. The gallbladder is normal. SPLEEN: No splenomegaly. PANCREAS: No focal masses or ductal dilatation. ADRENALS: No adrenal nodules. KIDNEYS/URETERS: Interval placement of a left internal ureteral stent with the proximal locking loop within the renal pelvis. Distal locking loop within the urinary bladder to the left of midline. As before, there is a 0.5 cm calculus in the proximal ureter, along side the stent (series 3 image 88). Hydronephrosis has improved and is now mild in severity. Renal edema and perinephric inflammation have also improved. Unchanged bilateral lower pole renal cysts. Punctate nonobstructing right lower pole renal calculus unchanged. PELVIC ORGANS/BLADDER: Urinary bladder is incompletely distended but otherwise unremarkable. Uterus is not identified and has presumably been removed. No adnexal mass. PERITONEUM/RETROPERITONEUM: No ascites. No pneumoperitoneum. LYMPH NODES: No pelvic sidewall, retroperitoneal, or mesenteric lymphadenopathy. VESSELS: Limited evaluation without intravenous contrast. The abdominal aorta is nonaneurysmal. GI TRACT: The large bowel shows no evidence of distention or wall thickening. The appendix is normal. Stomach is collapsed with prominence of the rugal folds. No small bowel dilatation to suggest obstruction. BONES AND SOFT TISSUES: No focal soft tissue abnormalities. No osseous destructive lesions. IMPRESSION: Interval placement of a left internal ureteral stent, appropriately positioned, with improvement in now mild hydronephrosis and near resolution of renal parenchymal edema and perinephric inflammation. 5 mm calculus is essentially unchanged in position and lies alongside the stent in the proximal ureter. Punctate nonobstructing right renal calculus unchanged. Nonspecific groundglass opacity in the right middle lobe may represent atelectasis or atypical infection in the correct clinical setting. Signed by: Dr. Harry Arias M.D. on 03/03/2019 7:38 AM
[2019-03-03 07:43] LABS: CLARITY,URINE CLOUDY (CLEAR); COLOR,URINE AMBER (YELLOW)
[2019-03-03 07:44] LABS: BILIRUBIN,URINE NEGATIVE (NEGATIVE); KETONES,URINE NEGATIVE (NEGATIVE); LEUKOCYTE ESTERASE ,URINE 1+ (NEGATIVE); NITRITE,URINE POSITIVE (NEGATIVE); PROTEIN,URINE DIPSTICK NEGATIVE (NEGATIVE); URINE UROBILINOGEN 0.2 mg/dL (0.2 - 1)
[2019-03-03 07:56] LABS: BLOOD UREA NITROGEN 17 mg/dL (7-26); BUN/CREATININE RATIO 25 (6-25)
[2019-03-03 07:59] LABS: BACTERIA,URINE RARE /HPF; EPITHELIAL CELLS,URINE RARE /LPF; RBC,URINE >50 /HPF (0-5)
[2019-03-03 08:00] LABS: WBC,URINE (MAN) 0-5 /HPF (0-5)
[2019-03-03] MEDS ORDERED: MORPHINE SULFATE INJ 4 MG/ML INJ 1ML IV PRN (09:00)
[2019-03-03] MEDS ORDERED: KETOROLAC TROMETHAMINE 30 MG/ML VIAL IV STA (09:04)
[2019-03-03] MEDS: SODIUM CHLORIDE 0.9% 1000ML 1,000 ML IV SCH ×2 (09:28→23:35)
[2019-03-03] MEDS: ONDANSETRON HCL INJ 2MG/ML 2ML 2 MG/ML VIAL IV PRN (09:28)
[2019-03-03] MEDS ORDERED: PIPER-TAZ 3.375 GM 50 ML IV SCH (09:30)
[2019-03-03] MEDS ORDERED: ZOLPIDEM TARTRATE 10 MG TAB PO PRN (15:15)
[2019-03-03] MEDS ORDERED: ACETAMINOPHEN 325 MG TAB PO PRN (15:15)
[2019-03-03] MEDS ORDERED: OXYBUTYNIN CHLORIDE XL 5 MG TAB PO PRN (15:15)
[2019-03-03] MEDS ORDERED: CEFTRIAXONE SOD 2 GM/NS 100 ML 100 ML IV SCH (15:15)
--- NOTE | 2019-03-03 15:55 | NUR ---
PATIENT ARRIVED TO ROOM 290 AT 1530. PATIENT IS IN STABLE CONDITION. ORIENTED TO ROOM AND POLICIES. ADMISSION HISTORY AND INITIAL PHYSICAL ASSESSMENT COMPLETED AND DOCUMENTED. CALL LIGHT WITHIN REACH. BED IN THE LOWEST POSITION.
[2019-03-03 15:58] VITALS: BP 128/75
[2019-03-03 16:00] VITALS: BP 128/75
[2019-03-03 16:07] VITALS: BP 128/75
[2019-03-03] MEDS: CEFTRIAXONE SOD 2 GM/NS 100 ML 100 ML IV SCH (16:57)
--- NOTE | 2019-03-03 19:24 | NUR ---
REPORT GIVEN TO ONCOMING NURSE. PATIENT IS IN RESTING IN BED. NO ACUTE DISTRESS NOTED. CALL LIGHT WITHIN REACH. BED IN THE LOWEST POSITION.
[2019-03-03] MEDS: KETOROLAC TROMETHAMINE 30 MG/ML VIAL IV PRN (19:29)
[2019-03-03 19:47] VITALS: BP 139/78
--- NOTE | 2019-03-03 19:47 | NUR ---
PT IS RESTING IN BED WATCHING TELEVISION. NO RESPIRATORY DISTRESS NOTED. BED IN THE LOWEST POSITION, LOCKED, AND CALL LIGHT WITHIN REACH. WILL CONTINUE TO MONITOR.
[2019-03-03 20:00] VITALS: BP 121/61
--- NOTE | 2019-03-03 22:25 | History and Physical ---
HISTORY OF PRESENT ILLNESS: The patient is a 44-year-old female, who has a past medical history positive for recurrent kidney stones, obesity. The patient came to the hospital after she had a stent placed on the left ureter by Dr. Murphy a few days ago. The patient is complaining of increasing abdominal pain. REVIEW OF SYSTEMS: CARDIOVASCULAR: No chest pain or palpitation. RESPIRATORY: No shortness of breath. No cough. GASTROINTESTINAL: No nausea, vomiting, or diarrhea. GENITOURINARY: She has pain in the left flank. ALLERGIES: ARE LISTED IN THE CHART. SHE IS NOT ALLERGIC TO ANY MEDICATION. SOCIAL HISTORY: She does not smoke. She does not drink. PAST MEDICAL HISTORY: Positive for recurrent kidney stones. PHYSICAL EXAMINATION: HEART: Showed regular rhythm. Normal S1 and S2 sound. LUNGS: Clear bilaterally. ABDOMEN: Soft, nontender. No distention. No visceromegaly. VITAL SIGNS: Blood pressure is 136/76, temperature 98.5, heart rate 66 per minute, respiratory rate 20 per minute, oxygen saturation 100%. LABORATORY WORK: We have a CBC with a white count 10.03, hemoglobin 13.2, hematocrit 39.5, platelet count 267,000. On BMP; sodium 138, potassium 4.0, chloride 103, CO2 of 28, BUN 17, creatinine 0.67, glucose 94, calcium 9.4, total bilirubin 0.4, AST 16, ALT 16, alkaline phosphatase 77, albumin 3.2, globulin 3.9. Urinalysis showed positive blood, positive nitrites, 1+ leukocytes, [address] of the abdomen and pelvis, which showed interval placement of a left internal ureteral stent, appropriately positioned, with improvement in mild hydronephrosis and near resolution of renal parenchyma, edema, and perinephric inflammation. A 5 mm calculus is essentially unchanged in position and lies alongside the stent in the proximal ureter. nonobstructing right renal calculus, unchanged. Nonspecific ground-glass opacity in the right middle lobe, may represent atelectasis or atypical infection in the correct clinical setting. FINAL IMPRESSION: 1. Left hydronephrosis secondary to kidney stone, status post stent placement. 2. Left kidney stone. 3. Possible urinary tract infection. PLAN OF TREATMENT: We are going to continue with ceftriaxone 2 g IV daily, normal saline at 100 mL an hour, Zosyn 3.375 g IV q.8 hours. Continue Tylenol 325 mg q.4 hours as needed for pain, Toradol 15 mg IV q.6 hours as needed, morphine 4 mg IV q.4 hours as needed for severe pain, Zofran 4 mg IV q.4 hours as needed for nausea and vomiting, oxybutynin 5 mg three times a day p.r.n. for overactive bladder, Zoloft 50 mg daily, Ambien 10 mg at night p.r.n. for insomnia. Dr. Murphy of Urology on the case. He is going to take the patient to the OR tomorrow for ureteroscopy. MD SAI Timmons/BUBBA /[id number]
[2019-03-04] VITALS (7 sets, daily range): BP systolic 131–153; BP diastolic 63–81
--- NOTE | 2019-03-04 06:42 | NUR ---
PT IS RESTING IN BED. NO RESPIRATORY DISTRESS NOTED. NO ACUTE EVENT OCCURRED THROUGHOUT THE NIGHT. BED IN THE LOWEST POSITION, LOCKED, AND CALL LIGHT WITHIN REACH. REPORT GIVEN TO ONCOMING NURSE.
[2019-03-04 06:51] LABS: BASOPHILS % 0.5 % (0.0-1.0); EOSINOPHILS # (AUTO) 0.4 (0.0-0.4); EOSINOPHILS % 4.9 % (0.0-6.0); LYMPHOCYTES # (AUTO) 1.7 (1.0-3.2); LYMPHOCYTES % 21.2 % (18.0-39.1); MEAN CORPUSCULAR HEMOGLOBIN 31.3 pg (28-32); MEAN CORPUSCULAR HGB CONC 33.3 g/dL (31-35); MEAN CORPUSCULAR VOLUME 93.8 fL (81-99); MONOCYTES # (AUTO) 1.3 (0.2-0.8); MONOCYTES % 16.1 % (4.4-11.3); NEUTROPHILS # (AUTO) 4.4 (2.1-6.9); NEUTROPHILS % 56.3 % (38.7-80.0); PLATELET COUNT 236 x10e3/uL (140-360); RED BLOOD COUNT 3.84 x10e6/uL (3.6-5.1); RED CELL DISTRIBUTION WIDTH 11.7 % (11.7-14.4)
[2019-03-04 07:42] LABS: ALANINE AMINOTRANSFERASE 15 IU/L (0-55); ALBUMIN 2.8 g/dL (3.5-5.0); ALBUMIN/GLOBULIN RATIO 0.8 (0.8-2.0); ALKALINE PHOSPHATASE 75 IU/L (40-150); BLOOD UREA NITROGEN 18 mg/dL (7-26); BUN/CREATININE RATIO 28 (6-25); CALCIUM 8.7 mg/dL (8.4-10.2); CARBON DIOXIDE 26 mmol/L (22-29); CHLORIDE 105 mmol/L (98-107); CREATININE, SERUM 0.65 mg/dL (0.57-1.11); EST GLOMERULAR FILTRATION RATE > 60 ML/MIN (60-); GLUCOSE 89 mg/dL (74-118); SODIUM 137 mmol/L (136-145)
[2019-03-04] MEDS: SERTRALINE HCL 50 MG TAB PO SCH (09:14)
[2019-03-04] MEDS: ONDANSETRON HCL INJ 2MG/ML 2ML 2 MG/ML VIAL IV PRN ×3 (09:14→21:20)
[2019-03-04] MEDS: SODIUM CHLORIDE 0.9% 1000ML 1,000 ML IV SCH ×3 (09:14→21:10)
[2019-03-04] MEDS: KETOROLAC TROMETHAMINE 30 MG/ML VIAL IV PRN ×3 (09:14→21:20)
--- NOTE | 2019-03-04 09:15 | NUR ---
Pt received resting in bed. Alert and oriented x4. Oriented to staff and surroundings, encouraged to press call mcdonnell if help needed. Pt verbalized understanding of teaching. Meds given as ordered. IV fluid ongoing. Will monitor
[2019-03-04] MEDS: CEFTRIAXONE SOD 2 GM/NS 100 ML 100 ML IV SCH (15:43)
--- NOTE | 2019-03-04 18:20 | Progress Note ---
DATE: Internal Medicine Progress Note SUBJECTIVE: The patient is having less pain today. PHYSICAL EXAMINATION: VITAL SIGNS: Blood pressure 131/63, temperature 38.5, heart rate 65 per minute, respiratory rate 16 per minute, oxygen saturation 97%. HEART: Showed regular rhythm. Normal S1, S2 sound. LUNGS: Clear bilaterally. ABDOMEN: Soft. LABORATORY DATA: BMP; sodium 137, potassium 4.0, chloride 105, CO2 of 26, BUN 18, creatinine 0.65, glucose 89. CBC; white blood count 7.77, hemoglobin 12.0, hematocrit 36.0, platelet count 236,1000. AST 14, ALT 15, total bilirubin 0.3, alkaline phosphatase 75. FINAL IMPRESSION: 1. Left kidney stone. 2. Possible urinary tract infection. PLAN OF TREATMENT: Continue IV fluids. Continue monitoring urine culture, which so far is negative. Continue on Rocephin 2 g IV once a day, sodium chloride 100 mL an hour, morphine 4 mg IV q.4 hours as needed, Zofran 4 mg IV q.4 hours as needed, Zoloft 50 mg daily. We are going to discontinue Toradol. We are going to continue Ambien 10 mg at night p.r.n. for sleep, Tylenol 325 mg q.4 hours as needed, oxybutynin 5 mg three times a day. Dr. Murphy is planning to do the ureteroscopy with stent removal once the urine culture is negative for at least 48 to 72 hours. MD SAI Timmons/BUBBA /[id number]
--- NOTE | 2019-03-04 19:10 | NUR ---
Patient visited in room during nursing rounds. Patient alert and oriented x3. Patient sitting on bedside recliner at this time. Patient experiencing intermittent left lower back pain. Pt states she prefers toradol for pain and not morphine because morphine cause stomach upset. Informed pt Dr. Cardoso to be called. Explained to patient possible reason toradol was discontinued (possible kidney damage) and pt was aware. Call mcdonnell within reach.
--- NOTE | 2019-03-04 19:50 | NUR ---
Patient had a bathroom bath on her own. No discomfort noted at this time.
--- NOTE | 2019-03-04 20:00 | NUR ---
Called Dr. Cardoso and informed pt prefers Toradol. MD ordered 30mg Toradol IV q6hr prn x 4 doses only.
[2019-03-05] VITALS (7 sets, daily range): BP systolic 125–158; BP diastolic 63–85
[2019-03-05] MEDS: KETOROLAC TROMETHAMINE 30 MG/ML VIAL IV PRN ×2 (03:33→12:24)
--- NOTE | 2019-03-05 08:20 | NUR ---
Pt received resting comfortably in bed. All meds given as ordered. Call mcdonnell within reach. Will monitor
[2019-03-05] MEDS: SODIUM CHLORIDE 0.9% 1000ML 1,000 ML IV SCH ×2 (08:21→23:18)
[2019-03-05] MEDS: SERTRALINE HCL 50 MG TAB PO SCH (08:21)
--- NOTE | 2019-03-05 11:34 | Progress Note ---
DATE: Internal Medicine Progress Note SUBJECTIVE: The patient is doing well. She , but she is doing okay now. OBJECTIVE: HEART: Showed regular rhythm. No murmurs or added sounds. LUNGS: Clear bilaterally. ABDOMEN: Soft, nontender. No distention. No visceromegaly. VITAL SIGNS: Blood pressure 125/63, temperature 97.1, heart rate 68 per minute, respiratory rate 18 per minute, and oxygen saturation 96%. LABORATORY DATA: BMP; sodium 137, potassium 4.0, chloride 105, CO2 26, BUN 18, creatinine 0.65, and glucose 89. CBC; white count 7.77, hemoglobin 12.0, hematocrit 36.0, and platelet count 233,000. AST 14, ALT 15, total bilirubin 0.3, alkaline phosphatase 75. Urine culture, negative so far. FINAL IMPRESSION: 1. Left hydronephrosis secondary to kidney stone, status post stent placement. 2. Obesity. PLAN OF TREATMENT: We are going to continue ceftriaxone 2 g IV daily. Continue normal saline 100 mL an hour, morphine 4 mg IV q.4 hours as needed, Zofran 4 mg IV q.4 hours as needed, Ambien 10 mg at night p.r.n. for sleep, Tylenol 325 mg q.4 hours as needed, Toradol 30 mg IV q.6 hours, oxybutynin 5 mg three times a day, and sertraline 50 mg daily. So tomorrow, Dr. Murphy is planning to take her to the OR. MD SAI Timmons/BUBBA /[id number]
[2019-03-05] MEDS: ONDANSETRON HCL INJ 2MG/ML 2ML 2 MG/ML VIAL IV PRN (12:24)
[2019-03-05] MEDS: CEFTRIAXONE SOD 2 GM/NS 100 ML 100 ML IV SCH (16:59)
--- NOTE | 2019-03-05 18:12 | NUR ---
Pt for Urology procedure in AM. Consent obtained, and placed in chart. Emotional support given. Call mcdonnell within reach. Will endorse to next shift
--- NOTE | 2019-03-05 19:10 | NUR ---
Patient visited in room during nursing rounds. Patient alert and oriented x3. Patient sitting on bedside recliner at this time. Patient aware she will be NPO at midnight and scheduled for Urology procedure tomorrow (03/06/19). Call mcdonnell within reach.
--- NOTE | 2019-03-05 20:00 | NUR ---
Patient disconnected from IVF per request. Patient aware that MD ordered continuous IVF and disconnecting IVF will go against MD order. Patient aware and still wanted to be disconnected. Pt agreed to be re-connected at midnight.
[2019-03-06] VITALS (7 sets, daily range): BP systolic 127–160; BP diastolic 58–78
--- NOTE | 2019-03-06 07:10 | NUR ---
PATIENT IS ALERT AND IN STABLE CONDITION WITH NO S/S OF RESPIRATORY DISTRESS. PATIENT DENIES PAIN. PATIENT IS NPO FOR PROCEDURE TODAY. PATIENT REFUSED AIR PUMP AND DOES NOT WANT TO BE CONNECTED TO FLUIDS AT THIS TIME. CALL LIGHT IS WITHIN REACH, PATIENT INSTRUCTED TO CALL FOR ASSISTANCE NEEDED.
[2019-03-06] MEDS: SODIUM CHLORIDE 0.9% 1000ML 1,000 ML IV SCH ×2 (12:39→16:49)
[2019-03-06] MEDS ORDERED: IOPAMIDOL 610MG/1ML 300 MG/ML VIAL IV ONE (13:40)
[2019-03-06] MEDS ORDERED: BELLADONNA/OPIUM 60 MG SUPP PR ONE (13:40)
--- NOTE | 2019-03-06 13:42 | NUR ---
PATIENT OFF THE UNIT PER STRETCHER FOR PROCEDURE. PATIENT IS IN STABLE CONDITION WITH NO S/S OF RESPIRATORY DISTRESS.
[2019-03-06] MEDS ORDERED: ONDANSETRON HCL INJ 2MG/ML 2ML 2 MG/ML VIAL ONE ×2 (15:29→18:56)
[2019-03-06] MEDS ORDERED: PROMETHAZINE HCL (IM) 25 MG/ML VIAL ONE (15:41)
--- NOTE | 2019-03-06 15:54 | NUR ---
REPORT RECEIVED FROM RECOVERY NURSE. CYSTOSCOPY PERFORMED, LASER, AND URETEROSCOPY COMPLETED.
[2019-03-06] MEDS: CEFTRIAXONE SOD 2 GM/NS 100 ML 100 ML IV SCH (16:10)
[2019-03-06] MEDS: SERTRALINE HCL 50 MG TAB PO SCH (16:12)
--- NOTE | 2019-03-06 16:15 | NUR ---
PATIENT RETURNED TO THE FLOOR- PATIENT IN STABLE CONDITION WITH NO S/S OF RESPIRATORY DISTRESS. IV ANTIBIOTIC INFUSING AND MORNING MEDICATION GIVEN TO THE PATIENT. BED ALARM ON AND CALL LIGHT IS WITHIN REACH OF PATIENT.
--- NOTE | 2019-03-06 17:33 | Discharge Summary ---
HOSPITAL COURSE: A 44-year-old female with past medical history positive for recurrent kidney stones, came here with pain in the left flank, stone, stent was removed by Dr. Murphy, another stent was placed. The patient is going home tomorrow. PHYSICAL EXAMINATION: HEART: Showed regular rhythm. Normal S1, S2 sound. LUNGS: Clear bilaterally. ABDOMEN: Soft. FINAL IMPRESSION: 1. Recurrent kidney stone with left kidney stone removal with stent removal and another stent was placed. 2. Gastroesophageal reflux disease. 3. Obesity. PLAN OF TREATMENT: The patient is going to be going home with instruction to follow up with Dr. Murphy sometime in one week. He wrote a prescription for Tylenol No. 3 one tablet q.4 hours as needed for pain, nitroglycerin three times a day as needed, Ambien 10 mg p.r.n. for sleep, Protonix 40 mg daily. The patient's discharge going to be tomorrow if okay with Dr. Murphy. CBC; white count 7.77, hemoglobin 12.2, hematocrit 33.0, and platelet count 236,000. AST 14, ALT 15, total bilirubin 0.3, and alkaline phosphatase 75. BMP showed sodium 137, potassium 4.0, chloride 105, CO2 26, BUN 18, creatinine 0.65, and glucose 89. Followup with Dr. Murphy in a week. MD SAI Timmons/BUBBA /[id number]
[2019-03-06] MEDS ORDERED: MIDAZOLAM HCL 2 MG/2 ML VIAL ONE (17:49)
[2019-03-06] MEDS ORDERED: FENTANYL CITRATE/PF 100MCG/2 ML INJ ONE (17:49)
[2019-03-06] MEDS ORDERED: DEXAMETHASONE SOD PHOS INJ 4 MG/ML VIAL ONE (18:56)
[2019-03-06] MEDS ORDERED: ROCURONIUM BROMIDE 10 MG/ML 5ML VIAL ONE (18:56)
[2019-03-06] MEDS ORDERED: PROPOFOL IV EMULSION 10 MG/ML 20 ML VIAL ONE (18:56)
[2019-03-06] MEDS ORDERED: LIDOCAINE HCL 2% LOCAL INJ 5 ML SDV VIAL INJ ONE (18:56)
[2019-03-06] MEDS ORDERED: SEVOFLURANE INHAL SOLN 250 ML PEN BTL ONE (18:56)
--- NOTE | 2019-03-06 19:21 | NUR ---
PATIENT IS SITTING UP ON THE SIDE OF THE BED POST AMBULATING TO THE RESTROOM. PATIENT IS IN STABLE CONDITION WITH NO S/S OF RESPIRATORY DISTRESS. NO PAIN VOICED. DRESSING TO LEFT LOWER LEG IS DRY AND INTACT. SON PRESENT IN ROOM. CALL LIGHT IS WITHIN REACH, PATIENT INSTRUCTED TO CALL FOR ASSISTANCE NEEDED. BEDSIDE REPORT GIVEN TO ONCOMING NURSE. Addendum: 03/06/19 at 1924 by Esha Jimenez RN WRONG ENTRY
--- NOTE | 2019-03-06 19:21 | NUR ---
PATIENT IS IN STABLE CONDITION WITH NO S/S OF RESPIRATORY DISTRESS. IV FLUIDS INFUSING. PATIENT REFUSED BED ALARM. CALL LIGHT IS WITHIN REACH, PATIENT INSTRUCTED TO CALL FOR ASSISTANCE NEEDED. BEDSIDE REPORT GIVEN TO ONCOMING NURSE.
--- NOTE | 2019-03-06 20:00 | NUR ---
Patient c/o pain and nausea. Given meds as ordered by MD.
[2019-03-06] MEDS: ONDANSETRON HCL INJ 2MG/ML 2ML 2 MG/ML VIAL IV PRN (20:26)
[2019-03-06] MEDS: KETOROLAC TROMETHAMINE 30 MG/ML VIAL IV PRN (20:26)
--- NOTE | 2019-03-07 | NUR ---
Patient AAOx3. Ambulated with no difficult noted. Patient request morphine and magui. Will give meds as ordered by .
[2019-03-07 01:04] VITALS: BP 117/58
[2019-03-07] MEDS: ONDANSETRON HCL INJ 2MG/ML 2ML 2 MG/ML VIAL IV PRN (02:41)
--- NOTE | 2019-03-07 04:55 | NUR ---
Received change of shift report from AM nurse. Walking rounds completed.
--- NOTE | 2019-03-07 05:24 | NUR ---
Patient in bed resting quitly at this time.
[2019-03-07 05:39] VITALS: BP 116/56
--- NOTE | 2019-03-07 07:10 | NUR ---
PATIENT IS IN STABLE CONDITION WITH NO S/S OF RESPIRATORY DISTRESS. NO PAIN VOICED. IV FLUIDS INFUSING. CALL LIGHT IS WITHIN REACH, PATIENT INSTRUCTED TO CALL FOR ASSISTANCE NEEDED.
[2019-03-07] MEDS ORDERED: PANTOPRAZOLE SOD 40 MG TABEC PO SCH ×2 (07:30→08:00)
[2019-03-07 07:39] VITALS: BP 143/80
[2019-03-07] MEDS: SERTRALINE HCL 50 MG TAB PO SCH (08:22)
--- NOTE | 2019-03-07 10:26 | NUR ---
PATIENT DISCHARGE HOME- PATIENT OFF THE UNIT AT 1026 PER WHEELCHAIR ACCOMPANIED BY PCT TO THE [facility] [place]. PATIENT IS IN STABLE CONDITION WITH NO S/S OF RESPIRATORY DISTRESS. NO PAIN VOICED. IV REMOVED WITH TIP INTACT. DISCHARGE INSTRUCTIONS, TEACHING, AND MEDICATIONS GIVEN TO THE PATIENT. ALL PERSONAL ITEMS TAKEN WITH THE PATIENT AND HER . Addendum: 03/07/19 at 1034 by Esha Jimenez RN WRONG ENTRY
[2019-03-07] MEDS ORDERED: AMBIEN10 MG PO (10:54)
[2019-03-07] MEDS ORDERED: PANTOPRAZOLE SO40 MG PO (10:55)
[2019-03-07 11:31] VITALS: BP 142/84
--- NOTE | 2019-03-07 11:39 | NUR ---
PATIENT DISCHARGE HOME- PATIENT OFF THE UNIT AT 1125 PER WHEELCHAIR ACCOMPANIED BY RN AND STAFF MEMBER TO THE ER PARKING LOT. PATIENT IN STABLE CONDITION WITH NO S/S OF RESPIRATORY DISTRESS. NO PAIN VOICED. IV REMOVED WITH TIP INTACT AT 1107. DISCHARGE INSTRUCTIONS, TEACHING, AND MEDICATIONS GIVEN TO THE PATIENT. ALL PERSONAL ITEMS TAKEN WITH THE PATIENT.
--- NOTE | 2019-03-19 01:31 | Operative Report ---
DATE OF PROCEDURE: 03/06/2019 SURGEON: Miguel Murphy MD PREOPERATIVE DIAGNOSES: 1. Left ureterolithiasis. 2. Left indwelling ureteral stent. POSTOPERATIVE DIAGNOSES: 1. Left ureterolithiasis. 2. Left indwelling ureteral stent. 3. Grade 1 cystocele. 4. Urethral hypermobility. 5. Grade 1 rectocele. OPERATION PERFORMED: 1. Cystourethroscopy with complicated removal of left indwelling ureteral stent (separate procedure performed for a separate scope for the diagnosis of stent). 2. Left ureteroscopy with holmium laser lithotripsy and stone extraction (separate procedure performed for diagnosis of the stone). 3. Radiological services for interpretation and supervision of ureteroscopy, no radiologist present. 4. Cystourethroscopy with placement of stents (separate procedure performed at the end of the holmium laser lithotripsy). 5. Interpretation of retrograde ureteropyelography. 6. Supervision of fluoroscopy, no radiologist present. 7. Pelvic examination under anesthesia. ANESTHESIA: General. COMPLICATIONS: None. CLINICAL SUMMARY: Candida Bright is a 44-year-old woman with the above preoperative diagnoses. Her stone which was previously manipulated into the left renal pelvis is now back in the ureter and the patient is brought for the above procedure. She is aware of the risks of bleeding, infection, injury to adjacent structures, need for additional procedures and elected to proceed. OPERATIVE PROCEDURE IN DETAIL: Informed consent was verified. Candida Bright was properly identified, taken to the operating room, placed on the cystoscopy table in a supine position. Anesthesia was uneventfully begun. The patient was then carefully gently repositioned in dorsal lithotomy position with all pressure points were padded. Her genitalia were prepared and draped in a sterile fashion. The cystoscope sheath with obturator in place was atraumatically inserted in the patient's urethra and bladder was drained. Panendoscopy revealed no suspicious mucosal lesions. There were no tumors, no stones, and no diverticula. A stent was emerging from the left ureteral orifice. There was mild mucosal inflammation around the stent. The guidewire was then placed alongside the stent and guided to the level of the patient's kidney. The stent was then grasped, completely removed and discarded. Ureteroscope was then placed alongside the guidewire to the proximal ureter. We identified the stone. The stone was impacted. Holmium laser lithotripsy was then utilized to break the stone up into smaller fragments. Nitinol tipless basket was then utilized to grasp largest of the fragments and several passes were made to ensure the ureter was clear of stones. With cystoscope and fluoroscopic guidance, the left-sided indwelling ureteral stent was placed. It was coiled in patient's kidneys as well as patient bladder. The retaining suture was cut short. Interpretation of retrograde ureteropyelography: Contrast was instilled in a retrograde fashion via the ureteroscope. The stone was exhibited as a filling defect in the proximal ureter. There was hydroureteronephrosis with calyceal blunting. The stent was in good position, coiled the patient's kidneys as well as the patient's bladder at the end of the case. The patient's bladder was drained, cystoscope was withdrawn. Pelvic examination revealed a grade 1 cystocele with urethral hypermobility and a grade 1 rectocele. No abnormal palpable pelvic masses were appreciated. There were no obvious mucosal lesions. The patient was then uneventfully reversed from anesthesia and taken to recovery room in stable condition. There were no complications to the procedure. She tolerated the procedure well. Explicit postop instructions were given and we will follow the patient up for a stent removal and ureteroscopy procedure in several weeks. MD PALOMO Blevins/BUBBA /[id number]
== END 2019-03-07 11:36 | disposition home or self-care (01) | DRG 660 ==
LOC: ER 06:36 → ERHOLD 14:25 → MED/SURG3 15:34
PROVIDERS: ADMIT Internal Medicine; ATTEND Internal Medicine
PROC: 0T778DZ Dilation of Left Ureter with Intraluminal Device, Via Natural or Artificial Opening Endoscopic (ICD-10-PCS; 2019-03-06)
PROC: 0TC78ZZ Extirpation of Matter from Left Ureter, Via Natural or Artificial Opening Endoscopic (ICD-10-PCS; principal; 2019-03-06 09:30)
DX: N13.6 Pyonephrosis (principal); Z68.41 Body mass index [BMI] 40.0-44.9, adult; N10 Acute pyelonephritis; E66.9 Obesity, unspecified; N81.10 Cystocele, unspecified; N81.6 Rectocele; N36.41 Hypermobility of urethra; Z87.442 Personal history of urinary calculi; Z96.0 Presence of urogenital implants; K21.9 Gastro-esophageal reflux disease without esophagitis
CPT/HCPCS: 36415; 74176; 74420; 80053; 81001; 85025; 87086; 88300; 96361; 99284; C2617; J0696; J1100; J1885; J2001; J2250; J2270; J2405; J2543; J2550; J7030

== ENCOUNTER → 2019-04-08 | Day surgery (SDC) | payer BC ==
--- NOTE | 2019-04-02 13:14 | Diagnostic Imaging Report ---
Exam: KUB - 2 views Clinical History: Renal stone, stent, left-sided pain. Comparison: CT abdomen/pelvis without contrast 03/03/2019, retrograde pyelogram 03/06/2019. Findings: Left-sided internal ureteral stent with the proximal pigtail overlying the expected location of the left renal pelvis, and the distal pigtail overlying the bladder. There is a 4 mm left proximal ureteral calcification. Bowel gas partially obscures visualization of the right kidney. No evidence of right-sided nephrolithiasis. Nonobstructive bowel gas pattern. No acute osseous abnormality. Impression: Left-sided internal ureteral stent with a 4 mm left proximal ureteral stone. Signed by: Dr. Glen Jaimes MD on 04/02/2019 1:11 PM
[~2019-04-08] MED LIST changes: +AMBIEN10 MG PO; +AZO CRANBERRY1 EACH PO; +B&O 60MG R/S 60 MG SUPP PR ONE; +CEFTRIAXONE SOD 1 GM/NS 50 ML 50 ML IV ONE; +DEXAMETHASONE SOD PHOS INJ 4 MG/ML VIAL ONE; +EYE LUBRICANT OPTH OINT 3.5GM TUBE OP ONE; +FAMOTIDINE 20 MG/2 ML VIAL IV ONE; +FENTANYL CITRATE/PF 100MCG/2 ML INJ ONE; +GENTAMICIN 80MG/NS 100 ML 100 ML IV ONE; +IOPAMIDOL 610MG/1ML 300 MG/ML VIAL IV ONE; +LIDOCAINE HCL 2% LOCAL INJ 5 ML SDV VIAL INJ ONE; +METOCLOPRAMIDE HCL 10 MG/2ML VIAL ONE; +MIDAZOLAM HCL 2 MG/2 ML VIAL ONE; +ONDANSETRON HCL INJ 2MG/ML 2ML 2 MG/ML VIAL ONE; +PANTOPRAZOLE SO40 MG PO; +PROPOFOL IV EMULSION 10 MG/ML 20 ML VIAL ONE; +SCOPOLAMINE 1.5 MG PATCH ONE; +SEVOFLURANE INHAL SOLN 250 ML PEN BTL ONE
[2019-04-08 14:50] VITALS: BP 133/83
--- NOTE | 2019-05-17 14:19 | Operative Report ---
DATE OF PROCEDURE: 04/08/2019 SURGEON: Miguel Murphy MD PREOPERATIVE DIAGNOSES: 1. Left ureterolithiasis. 2. Left indwelling ureteral stent. POSTOPERATIVE DIAGNOSES: 1. Left ureterolithiasis. 2. Left indwelling ureteral stent. 3. Mild cystocele. 4. Mild rectocele. 5. Atrophic (senile) vaginitis. OPERATION PERFORMED: Note, these are all staged procedures as part of multistage, multistep process in managing the patient's ureterolithiasis. 1. Cystourethroscopy with complicated removal of left indwelling ureteral stent (separate procedure performed for the diagnosis of stent done with a separate scope). 2. Complicated left ureteroscopy with stone manipulation and extraction of three separate stones (separate multi procedures performed for multiple stones). 3. Radiological services for supervision and interpretation of ureteroscopy. 4. Interpretation of retrograde ureteropyelography. 5. Supervision of fluoroscopy, no radiologist present. 6. Pelvic examination under anesthesia. ANESTHESIA: General. COMPLICATIONS: None. CLINICAL SUMMARY: Candida Bright is a 44-year-old woman with indwelling ureteral stent. She is status post laser of her stone. She is aware of the risks of bleeding, infection, injury to adjacent structures, need for additional procedures and elected to proceed. OPERATIVE PROCEDURE IN DETAIL: Informed consent was verified. Candida Bright was properly identified, taken to the operating room, placed on the cystoscopy table in supine position, anesthesia was uneventfully begun. The patient was then carefully and gently repositioned in a dorsal lithotomy position with all pressure points well padded. Her genitalia were prepared and draped in usual sterile fashion. The cystoscope sheath with the obturator in place was atraumatically inserted. The patient's urethra and the bladder were drained. Panendoscopy revealed a stent emerging from left ureteral orifice, stent was minimally encrusted. A guidewire was then placed alongside the stent and guided to the level of the patient's kidney. The stent was then grasped, completely removed and discarded. Semi-rigid ureteroscope was then placed alongside the guidewire and guided to the distal ureter. There were some ruben sand noted, but no large stones. The sand was irrigated. A flexible ureteroscope was then placed over the secondary guidewire and guided to the level of the patient's proximal ureter where we identified stones. A total of three stones were grasped one at a time. The stone was grasped with Nitinol tipless basket and atraumatically extracted. This maneuver was performed three different x3 for different stones including stones that migrated up into the kidney. 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 I carefully re-examined the ureter. As we exited, there were no suspicious lesions, no other strictures. The patient's bladder was drained. The cystoscope was withdrawn. Pelvic examination revealed a grade 1 cystocele, grade 1 rectocele, no abnormal palpable pelvic masses could be appreciated. There was atropic (senile) vaginitis. Interpretation of retrograde ureteropyelography: Contrast was instilled in a retrograde fashion via the ureteroscope. There was chronic-appearing hydronephrosis. In the left-sided collecting system, there was some fullness. There were no obvious filling defects noted on retrograde pyelography. The ureter was unremarkable at the end of the case. It should be noted that flexible ureteroscopy sheath was utilized to protect from ureteral injury. There were no complications to the procedure. She tolerated the procedure well. Estimated blood loss was minimal. Explicit postop instructions were given. We will follow the patient in the office. Ongoing urologic followup is a must for the purpose of metabolic stone workup as well as management for any stone recurrence. Miguel Murphy MD [facility]/MOD[facility] /[id number] cc: Km Cardoso MD
== END | disposition home or self-care (01) ==
LOC: OR 08:00
PROVIDERS: ATTEND Urology
DX: N20.1 Calculus of ureter (principal); Z46.6 Encounter for fitting and adjustment of urinary device; N13.30 Unspecified hydronephrosis; N28.89 Other specified disorders of kidney and ureter; N81.10 Cystocele, unspecified; N81.6 Rectocele; N95.2 Postmenopausal atrophic vaginitis; K21.9 Gastro-esophageal reflux disease without esophagitis; F32.9 Major depressive disorder, single episode, unspecified; F41.9 Anxiety disorder, unspecified
CPT/HCPCS: 52352; 74018; 74420; 88300; C1766; J0696; J1100; J1580; J2001; J2250; J2405; J2704; J2765; Q9967; J3010

== ENCOUNTER 2025-06-01 10:15 | Emergency (ER) | payer BC ==
[~2025-06-01] VITALS: Ht 157.5 cm; Wt 80.3 kg
[~2025-06-01 10:15] MED LIST changes: -B&O 60MG R/S 60 MG SUPP PR ONE; -CEFTRIAXONE SOD 1 GM/NS 50 ML 50 ML IV ONE; -DEXAMETHASONE SOD PHOS INJ 4 MG/ML VIAL ONE; -EYE LUBRICANT OPTH OINT 3.5GM TUBE OP ONE; -FAMOTIDINE 20 MG/2 ML VIAL IV ONE; -FENTANYL CITRATE/PF 100MCG/2 ML INJ ONE; -GENTAMICIN 80MG/NS 100 ML 100 ML IV ONE; -IOPAMIDOL 610MG/1ML 300 MG/ML VIAL IV ONE; -LIDOCAINE HCL 2% LOCAL INJ 5 ML SDV VIAL INJ ONE; -METOCLOPRAMIDE HCL 10 MG/2ML VIAL ONE; -MIDAZOLAM HCL 2 MG/2 ML VIAL ONE; -ONDANSETRON HCL INJ 2MG/ML 2ML 2 MG/ML VIAL ONE; -PROPOFOL IV EMULSION 10 MG/ML 20 ML VIAL ONE; -SCOPOLAMINE 1.5 MG PATCH ONE; -SEVOFLURANE INHAL SOLN 250 ML PEN BTL ONE
[2025-06-01 10:23] VITALS: TEMP 97.9
[2025-06-01 10:55] LABS: BASOPHILS % 0.4 % (0.0-1.0); EOSINOPHILS % 0.4 % (0.0-6.0); LYMPHOCYTES % 15.2 % (18.0-39.1); MONOCYTES % 9.2 % (4.4-11.3); NEUTROPHILS % 74.4 % (38.7-80.0); RED CELL DISTRIBUTION WIDTH 11.7 % (11.7-14.4)
[2025-06-01] MEDS: METOCLOPRAMIDE HCL 10 MG/2ML VIAL IV ONE (10:56)
[2025-06-01] MEDS: SODIUM CHLORIDE 0.9% 1000ML 1,000 ML IV ONE (10:56)
[2025-06-01 11:18] LABS: EST GLOMERULAR FILTRATION RATE 106.0 ML/MIN (>=60)
[2025-06-01 11:42] LABS: CORONAVIRUS COVID-19 AG NEGATIVE (NEGATIVE)
[2025-06-01 12:15] VITALS: PULSE 75; RESP 18; O2SAT 98
[2025-06-01 13:02] LABS: LEUKOCYTE ESTERASE ,URINE TRACE (NEGATIVE); PROTEIN,URINE DIPSTICK NEGATIVE (NEGATIVE); URINE UROBILINOGEN 0.2 mg/dL (0.2 - 1)
[2025-06-01 13:17] LABS: EPITHELIAL CELLS,URINE FEW /LPF
[2025-06-01] MEDS ORDERED: REGLAN10 MG PO (13:37)
[2025-06-01] MEDS ORDERED: CEPHALEXIN500 MG PO (13:37)
== END 2025-06-01 13:49 | disposition home or self-care (01) ==
LOC: ER 10:21
DX: R11.2 Nausea with vomiting, unspecified (principal); N39.0 Urinary tract infection, site not specified; I10 Essential (primary) hypertension; M32.9 Systemic lupus erythematosus, unspecified; F41.9 Anxiety disorder, unspecified; F32.A Depression, unspecified; Z87.442 Personal history of urinary calculi
CPT/HCPCS: 36415; 80053; 81001; 83690; 84702; 85025; 87086; 87428; 93005; 99283; J2765; J7030